=== PATIENT | female | born 1985 | race Caucasian/White ===

== ENCOUNTER 2023-09-28 19:28 | Emergency (ER) | payer MEDICAID, SELFPAY ==
[2023-09-28 19:29] VITALS: BP 146/111; PULSE 127; RESP 18; TEMP 36.9; O2SAT 100; BMI 31.6
[2023-09-28 21:28] VITALS: BP 143/94; PULSE 82; RESP 18; O2SAT 99
--- NOTE | 2023-09-28 22:00 | RAD_ITS ---
INDICATION: Shortness of breath EXAMINATION/TECHNIQUE: X-RAY - XR Chest 1 View COMPARISON: None. FINDINGS: LINES/DEVICES: None. LUNGS: No consolidation or evidence of an effusion. No evidence of edema or a pneumothorax. MEDIASTINUM AND CARDIOVASCULAR STRUCTURES: Cardiac silhouette is normal in size and contour. Mediastinum is unremarkable. BONES AND SOFT TISSUES: No acute abnormality. RAD/Chest 1 View (Portable) IMPRESSION: No evidence of cardiopulmonary disease. Electronically Signed: Shabbir Welsh DO at 22:41 EDT ,
[2023-09-28 22:26] LABS: Absolute Lymphocyte Count 2.19 X10^3/uL (0.83-4.51); Absolute Neutrophil Count 4.1 X10^3/uL (2.0-7.7); Basophil# 0.07 X10^3/uL; Eosinophil# 0.08 X10^3/uL; Eosinophils% 1.1 % (0-5); Hematocrit 45.8 % (37-47); Hemoglobin 15.4 g/dL (12.0-15.0); Lymphocyte # 2.19 X10^3/ul (0.83-4.51); Lymphocyte % 30.6 % (19-41); Mean Corp Hgb Conc 33.6 g/dL (32-36); Mean Corpuscular Hgb 29.5 pg (27.0-32.0); Mean Corpuscular Volume 87.7 fL (81-99); Mean Platelet Vol. 11.9 fl (6.2-12.0); Monocyte# 0.74 X10^3/uL; Monocyte% 10.3 % (0-10); NRBC Flagged by Analyzer 0 % (0-5); Neutrophil # 4.05 X10^3/uL (2.7-7.7); Neutrophil % 56.6 % (47-70); Platelet Count 166 K/mm3 (150-450); RBC Distribution Width CV 12.8 % (11.6-14.6); RBC Distribution Width SD 41.5 fl (35.1-43.9); Red Blood Count 5.22 M/mm3 (4.2-5.4); White Blood Count 7.2 K/mm3 (4.4-11.0)
[2023-09-28 22:32] LABS: Internal QC Validated? YES +Cl - CLEAR BKGD; Pregnancy, Serum, hCG Quali. NEGATIVE Negative; Record Kit Lot#, Serum Preg. 718088
[2023-09-28 22:38] LABS: Anion Gap 4 (5-15); BUN 10 mg/dL (7-18); BUN/Creat Ratio 11.5 RATIO (10-20); Calcium,Total 8.8 mg/dL (8.5-10.1); Chloride 105 mmol/L (98-107); Creatinine, Serum 0.87 mg/dL (0.55-1.02); EST Glomerular Filtration Rate 77 mL/min (>60); Est Glom Filt Rate - Afr Amer 93 mL/min (>60); Estimated Creatinine Clearance 90.74 ml/min; Glucose 100 mg/dL (74-106); Potassium 3.2 mmol/L (3.5-5.1); Sodium Level 137 mmol/L (136-145)
[2023-09-28 23:00] VITALS: BP 144/90; PULSE 75; RESP 18; O2SAT 100
[2023-09-28 23:20] LABS: Color, Urine Yellow (Yellow); Glucose, Dipstick Normal (Normal); Ketone-Dipstick 5 mg/dl (Negative); Leukocyte Esterase-Dipstick 25 /ul (Negative); Nitrite-Dipstick Negative (Negative); Occult Blood-Urine 250 /ul (Negative); Protein-Dipstick 30 mg/dl (Negative); Specific Gravity, Urine 1.025 (1.002-1.030); Urine Clarity Sl. Cloudy (Clear); Urine Urobilinogen Normal (Normal)
--- NOTE | 2023-09-28 23:20 | EDS_ITS ---
HPI History of Present Illness Chief Complaint: General Illness Narrative Narrative: 38-year-old female presents with multiple somatic complaints. She states it started few days ago, but on Thursday, yesterday she had multiple episodes of diarrhea. Her urine was malodorous as well. She was concerned about having a bladder infection. She also states that she did not feel very well and she took her blood pressure and it was elevated systolically in the 140s over 90-95. She may have also felt heart palpitations. She was concerned about having a kidney infection/UTI, then had problems with her sinuses. She went to urgent care and given her elevation in blood pressure, she was told to come to the emergency department. She had also felt short of breath as well. PFSH PFSH Allergy/AdvReac Type Severity Reaction Status Date / Time Penicillins Allergy Hives Verified 09/28/23 19:29 Social History Smoking Status: Never smoker ROS ROS ED ROS Narrative Constitutional: No fever, no chills. Elevated blood pressure HEENT: No sore throat. No neck pain. No loss of vision. No rhinorrhea. Positive sinus pressure Cardiovascular: No chest pain. Occasional palpitations. No pedal edema. Respiratory: No cough, positive shortness of breath. Abdominal: No abdominal pain. Positive diarrhea. Genitourinary: No dysuria. No hematuria. Foul-smelling urine. Musculoskeletal: No myalgias. No arthralgias. Neurologic: Positive sinus headache. No dizziness. No lightheadedness. Skin: No rash. No change in color. Psychiatric: No depression. Mild anxiety. EXAM Physical Exam Narrative Exam Narrative: Afebrile. Vital signs noted. HEENT: Normocephalic. Atraumatic. PERRL, EOMI. Neck soft and supple. No point tenderness or step off. Cardiovascular: Intermittent tachycardia. No murmurs, rubs, or gallops appreciated. Respiratory: No tachypnea. Lungs clear to auscultation bilaterally. Gastrointestinal: Abdomen soft, nontender, with normoactive bowel sounds. No rebound or guarding. Neurological: Awake. Alert. Nonfocal, nonlateralizing. Skin: No rash. Normal color. No pallor. Musculoskeletal: No pedal edema. Full range of motion extremities. Const Vital Signs: 09/28/23 19:29 09/28/23 22:21 09/28/23 21:28 Temperature 98.5 F Temperature Source Temporal Pulse Rate 127 H 82 Respiratory Rate 18 18 Respiratory Effort Normal Respiratory Pattern Normal Blood Pressure 146/111 H 143/94 H Blood Pressure Mean 122 110 Pulse Ox 100 99 Oxygen Delivery Method Room Air 09/28/23 23:00 Temperature Temperature Source Pulse Rate 75 Respiratory Rate 18 Respiratory Effort Respiratory Pattern Blood Pressure 144/90 H Blood Pressure Mean 108 Pulse Ox 100 Oxygen Delivery Method Room Air MDM MDM MDM Narrative Medical decision making narrative: In the differential diagnosis would be UTI versus sinus infection versus pneumonia. Her history and physical does not really support pneumonia or pneumothorax. Her pulse ox is 100% on room air. EKG was obtained and interpreted by myself independently which demonstrates sinus tachycardia 103 bpm without ectopy or acute ST changes. No STEMI. Chest x-ray 1 view interpreted by myself shows no pneumonia or pneumothorax. I reviewed the radiology report which confirms my independent interpretation. I reviewed her laboratory work and she has normal white count of 7.2, hemoglobin slightly hemoconcentrated at 15.4. Electrolyte panel is significant for potassium low at 3.2. This was replaced orally with 40 mill equivalents. Glucose is normal at 100. Serum is negative, but she states that she has control implant. She has not given a urine sample as of yet. Her blood pressure is elevated systolically at 144 which is borderline elevation. I do not feel that she needs an antihypertensive currently. She should keep a log of her blood pressures and follow-up with her primary care physician. She was referred to as she states that she called the [facility] and could not get in during the day is the only time that they could see her but she is unavailable. As long as her urinalysis is normal, I feel she can be discharged either with or without antibiotics. I did review her urinalysis, and I feel it is a contaminated s pecimen with 5-10 white cells but 10-25 squamous epithelial cells. I do not feel antibiotics are indicated. I feel she be discharged to follow-up with her primary care provider. Return instructions reviewed. Disposition is discharged home in stable condition. History & Record Review Discussion w/independent historian: Patient Lab Data Attestation: I reviewed the patient's lab results. Labs: Laboratory Results - last 24 hr 09/28/23 09/28/23 22:10 23:08 WBC 7.2 RBC 5.22 Hgb 15.4 H Hct 45.8 MCV 87.7 MCH 29.5 MCHC 33.6 RDW Std Deviation 41.5 RDW Coeff of Rashida 12.8 Plt Count 166 MPV 11.9 Immature Gran % (Auto) 0.400 Neut % (Auto) 56.6 Lymph % (Auto) 30.6 [place] % (Auto) 10.3 H Eos % (Auto) 1.1 Baso % (Auto) 1.0 Absolute Neuts (auto) 4.1 Absolute Lymphs (auto) 2.19 Nucleated RBC % 0 Sodium 137 Potassium 3.2 L Chloride 105 Carbon Dioxide 28.0 Anion Gap 4 L BUN 10 Creatinine 0.87 Estim Creat Clear Calc 90.74 Est GFR (MDRD) Af Amer 93 Est GFR (MDRD) Non-Af 77 BUN/Creatinine Ratio 11.5 Glucose 100 Calcium 8.8 Serum , Qual NEGATIVE Urine Color Yellow Urine Clarity Sl. Cloudy Urine pH 5.0 Ur Specific [place] 1.025 Urine Protein 30 H Urine Glucose (UA) Normal Urine Ketones 5 H Urine Occult Blood 250 H Urine Nitrite Negative Urine Bilirubin 1 H Urine Urobilinogen Normal Ur Leukocyte Esterase 25 H Urine RBC 10-25 SEEN Urine WBC 5-10 SEEN Ur Squamous Epith Cells 10-25 SEEN Urine Bacteria 1+ Urine Mucus 3+ Radiography Diagnostic Testing: Clinical Impression(s) from Imaging Studies Chest X-Ray 09/28/23 22:00 IMPRESSION: No evidence of cardiopulmonary disease. Electronically Signed: Shabbir Welsh DO at 22:41 EDT Reading Location ID and State: [facility] / [place] Tel , Service support , Discharge Plan Triage Chief Complaint: General Illness ED Provider: Sergo Prasad Dx/Rx/DC Orders Clinical Impression: Elevated blood pressure reading, Diarrhea, Hypokalemia Instructions: ED Diarrhea, Unknown Cause, ED Hypertension, To Be Confirmed, ED Hypokalemia Stand Alone Forms: ED Work / School Excuse Primary Care Provider: Care Physician,No Primary Referrals: Eleazar Bettencourt MD [Med Staff - Active Staff] - As soon as possible Lorraine Dixon [Non-Staff] - As soon as possible Care Physician,No Primary [Primary Care Provider] - Disposition Disposition: Home, Self Care
[2023-09-28 23:25] LABS: Urine Bilirubin Dipstick 1 mg/dL (Negative); White Blood Cells 5-10 SEEN /hpf (0-5)
[2023-09-28 23:26] LABS: Bacteria 1+ /hpf (None Seen); Mucous, Urine 3+ /hpf (<or=2+); Red Blood Cells-Urine 10-25 SEEN /hpf (0-5); Squamous Epithelial Cells - UA 10-25 SEEN /hpf (5-10)
== END 2023-09-28 23:50 | disposition home or self-care (01) ==
PROVIDERS: Emergency Provider Emergency Medicine; Visit Provider Emergency Medicine
DX: E87.6 Hypokalemia (principal); R19.7 Diarrhea, unspecified; R03.0 Elevated blood-pressure reading, without diagnosis of hypertension
CPT/HCPCS: 71045; 80048; 81001; 84703; 85025; 93005; 99283; A4216